=== PATIENT | male | born 1935 | race Caucasian/White ===

== ENCOUNTER 2022-09-24 12:45 | Inpatient (IN) | payer MEDICARE ==
[~2022-09-24] VITALS: Ht 167.6 cm; Wt 99.8 kg
[2022-09-24] MEDS ORDERED: ACETAMINOPHEN ES 500 MG TABLET PO ONE (13:45)
[2022-09-24] MEDS ORDERED: ACETAMINOPHEN ES 500 MG TABLET ONE (13:53)
--- NOTE | 2022-09-24 17:30 | NUR ---
Attempted to ambulate patient with walker as requested by . Pt was unable to get out of bed and ambulate with assistance. notified.
[2022-09-24 18:44] LABS: HEMATOCRIT 32.8 % (36.7-47.1); MEAN CORPUSCULAR HEMOGLOBIN 30.3 uug (23.8-33.4); MEAN CORPUSCULAR VOLUME 87.8 fL (73.0-96.2); PLATELET COUNT (AUTO) 198 K/uL (152-348)
--- NOTE | 2022-09-24 19:00 | NUR ---
Received pt. from RN in the AM, pt in bed, laying down, offered urinal, collected urine and sent to lab.
[2022-09-24 19:07] LABS: CARBON DIOXIDE 31 mmol/L (21-32); CHLORIDE 105 mmol/L (98-107); CREATININE 0.9 mg/dL (0.6-1.3); GLUCOSE 114 mg/dL (74-106); POTASSIUM 3.7 mmol/L (3.5-5.1); UREA NITROGEN, BLOOD 26 mg/dL (7-18)
[2022-09-24 19:21] LABS: ALANINE AMINOTRANSFERASE 24 U/L (16-63); ALKALINE PHOSPHATASE 73 U/L (50-136); ASPARTATE AMINOTRANSFERASE 19 U/L (15-37); BILIRUBIN,DIRECT 0.4 mg/dL (0.0-0.2); TOTAL PROTEIN, SERUM 6.3 g/dL (6.4-8.2)
[2022-09-24 20:01] LABS: *BILIRUBIN,URIN NEGATIVE (NEGATIVE); *BLOOD, URINE NEGATIVE (NEGATIVE); *CLARITY,URINE SLIGHTLY CLOUDY (CLEAR); *COLOR,URINE YELLOW (YELLOW); *KETONES,URINE 2+ (NEGATIVE); LEUKOCYTE ESTERASE ,URINE NEGATIVE (NEGATIVE); NITRITE, URINE NEGATIVE (NEGATIVE); UGLUCOSE NEGATIVE (NEGATIVE)
[2022-09-24 20:31] LABS: BACTERIA,URINE FEW /HPF (NONE SEEN); RBC,URINE NONE SEEN /HPF (0-3); SQUAMOUS EPITHELIAL CELL,UR MANY /HPF (NONE SEEN); WBC,URINE NONE SEEN /HPF (0-3)
[2022-09-24] MEDS ORDERED: IV NS 1000 ML 1,000 ML IV ONE (20:45)
--- NOTE | 2022-09-24 21:50 | NUR ---
Called [facility] for panel call. awaiting for Isidro López NP to call back
--- NOTE | 2022-09-24 21:58 | NUR ---
Patient has been accepted by Isidro JOSEPH
--- NOTE | 2022-09-24 22:09 | NUR ---
Endorsed to [facility] from [place].
[2022-09-24] MEDS ORDERED: ACETAMINOPHEN 325 MG TABLET PO PRN (22:15)
[2022-09-24] MEDS ORDERED: REMEDY ESSENTIAL ZINC PASTE 113 GM TP PRN (22:15)
[2022-09-24] MEDS ORDERED: ONDANSETRON 4 MG/2 ML VIAL IV PRN (22:15)
--- NOTE | 2022-09-24 22:40 | NUR ---
Admitted a 87 years old male with Dx of Gen weakness and Dehydration. Patient AAOx2 with forgetfulness. In no acute distress. Denies any SOB. Complain of mild lower back pain that is tolerable at this time. IV site on left AC intact and patent. With IVF NS infusing bolus from ER. Routine admission care done. Plan of care initiated. Safety measure initiated and call light within reached.
[2022-09-24 23:21] VITALS: BP 155/72
[2022-09-24] MEDS: IV LACTATED RINGERS SOLUTION 1,000 ML IV PRN (23:35)
[2022-09-25 04:11] VITALS: BP 142/60
--- NOTE | 2022-09-25 06:26 | NUR ---
RESIDENT IN BED SLEPT WELL. BREATHING EVEN AND UNLABORED. NO C/O PAIN AT THIS TIME. IV LINE LEFT AC #20G IS INTACT AND PATENT. NO S/SX OF PHLEBITIS, INFILTRATE OR REDNESS NOTED. IVF INFUSING.RESIDENT KEPT CLEAN DRY AND COMFORTABLE. ALL NEEDS MET AND ANTICIPATED.
[2022-09-25 06:58] LABS: HEMATOCRIT 30.4 % (36.7-47.1); MEAN CORPUSCULAR VOLUME 87.2 fL (73.0-96.2); PLATELET COUNT (AUTO) 193 K/uL (152-348)
[2022-09-25 07:19] LABS: CREATININE 0.8 mg/dL (0.6-1.3); MAGNESIUM 1.8 mg/dL (1.8-2.4); PHOSPHOROUS 3.2 mg/dL (2.5-4.9); POTASSIUM 3.4 mmol/L (3.5-5.1)
[2022-09-25 07:25] LABS: THYROID STIMULATING HORMONE 1.127 mIU/mL (0.358-3.740)
[2022-09-25] MEDS ORDERED: POTASSIUM CHLORIDE 20 MEQ TAB.PRT.SR PO ONE (09:15)
[2022-09-25] MEDS: IV LACTATED RINGERS SOLUTION 1,000 ML IV PRN (10:27)
[2022-09-25 11:13] VITALS: BP 158/65
--- NOTE | 2022-09-25 13:07 | NUR ---
WOUND CARE CONSULT: PT PRESENTS WITH LEFT HEEL INTACT DEEP TISSUE INJURY, RT HEEL REDNESS, LEFT CALF RAISED DISCOLORED AREA AND LEFT ELBOW SKIN TEAR, ALL PRESENT ON ADMISSION. DPM CONSULT CALLED TO DR LUCIA. RECOMMENDATIONS MADE FOR SKIN PROTECTION AND WOUND CARE. DISCUSSED WITH NURSING STAFF. MD IN AGREEMENT WITH PLAN OF CARE.
--- NOTE | 2022-09-25 13:13 | NUR ---
[employer] Consultant consult requested for continuity of care. Upon SS consult, pt. appears alert and oriented x4. Patient presents with a normal mood and congruent affect. Patient appears socially engaging and open to conversation. Patient provided appropriate eye contact and appears unkempt. Patient denied psychiatric history. Patient denies suicidal/homicidal ideation. Patient denies visual and auditory hallucinations. Patient stated his cousin Marlee ([phone]) is his primary contact lens molder. Patient stated he is also in contact with his daughter Abi ([phone]). Patient stated that he fell at his assisted living facility. Patient stated that he was independent with his ADL's prior to admission at the hospital. Patient stated he has assistance there from staff if needed. Patient stated he currently resides at [facility]. Patient stated he wants to return back to this facility today. Patient stated that "if he is not discharged today then he is going to leave A." Per AMIRA Morel, pt will require a SNF due to pt's wounds. paraplanner will follow-up with CM regarding DC plan. paraplanner will remain available as needed.
--- NOTE | 2022-09-25 16:44 | NUR ---
Patient was discharged via ambulance to [facility]. All discharge instructions were given to transporters. He left facility in stable condition.
== END 2022-09-25 15:40 | DRG 605 ==
LOC: ER 12:45 → TELE3 21:20 → MEDSURG3 22:01
PROVIDERS: ADMIT Nurse Practitioner Acute Care; ATTEND Nurse Practitioner Acute Care
DX: S50.02XA Contusion of left elbow, initial encounter (principal); D68.69 Other thrombophilia; I50.32 Chronic diastolic (congestive) heart failure; I48.91 Unspecified atrial fibrillation; D63.8 Anemia in other chronic diseases classified elsewhere; I11.0 Hypertensive heart disease with heart failure; E87.6 Hypokalemia; E78.5 Hyperlipidemia, unspecified; M43.17 Spondylolisthesis, lumbosacral region; M48.04 Spinal stenosis, thoracic region; W01.0XXA Fall on same level from slipping, tripping and stumbling without subsequent striking against object, initial encounter; Y93.E1 Activity, personal bathing and showering; Y92.89 Other specified places as the place of occurrence of the external cause; I45.10 Unspecified right bundle-branch block; S90.32XA Contusion of left foot, initial encounter
CPT/HCPCS: 36415; 71045; 72131; 73080; 73630; 83735; 84100; 84443; 84484; 85025; 93005; A4663; A6209; A9150; G0378; J7120